=== PATIENT | female | born 1960 | race Caucasian/White ===

== ENCOUNTER → 2019-01-12 15:25 | Outpatient (CLI) | payer OTHER, SELFPAY ==
--- NOTE | 2019-01-12 15:34 | VDLE_ITS ---
Reason For Study: Pain LLE RIGHT LEFT CFV is compressible, spontaneous, phasic, GSV is normal. competent and demonstrates normal CFV is compressible, spontaneous, phasic, augmentation. competent, and demonstrates normal Procedure augmentation. Exam performed in department. FV is compressible, spontaneous, phasic, A preliminary report was called and/or faxed competent and demonstrates normal to Dr. King. augmentation. POP V is compressible, spontaneous, phasic, competent and demonstrates normal augmentation. T/P Trunk is compressible. PTV is compressible. LT PerV is compressible. Interpretation Summary Deep veins of the left lower extremity are patent and compressible segmentally. There is no evidence of left lower extremity deep vein thrombosis. Valvular competence appears intact within the proximal deep venous system on the left . The left great saphenous vein appears patent and compressible segmentally. Ordering Physician: Vick King Referring Physician: Marion Barraza Performed By: Saritha Healy, KATHE, RVT
== END ==
PROVIDERS: Family Provider Nurse Practitioner Primary Care; PCP Nurse Practitioner Primary Care; Referring Provider Specialist; Visit Provider Specialist
DX: M79.662 Pain in left lower leg (principal)
CPT/HCPCS: 93971

== ENCOUNTER → 2019-02-15 14:49 | Outpatient (CLI) | payer OTHER, SELFPAY ==
--- NOTE | 2019-02-15 14:51 | VDLE_ITS ---
Reason For Study: pain RIGHT LEFT CFV is compressible, spontaneous, phasic, GSV is normal. competent and demonstrates normal CFV is compressible, spontaneous, phasic, augmentation. competent, and demonstrates normal Procedure augmentation. Exam performed in department. FV is compressible, spontaneous, phasic, The exam was diagnostic. competent and demonstrates normal A preliminary report was called and/or faxed augmentation. to [facility]. POP V is compressible, spontaneous, phasic, competent and demonstrates normal augmentation. T/P Trunk is compressible. PTV is compressible. LT PerV is compressible. Interpretation Summary Deep veins of the left lower extremity are patent and compressible segmentally. There is no evidence of left lower extremity deep vein thrombosis. Valvular competence appears intact within the proximal deep venous system on the left . The left great saphenous vein appears patent and compressible segmentally. Performed By: Beka Bucio RVT
== END ==
PROVIDERS: Family Provider Nurse Practitioner Primary Care; PCP Nurse Practitioner Primary Care; Referring Provider Physician Assistant Surgical; Visit Provider Physician Assistant Surgical
DX: M79.605 Pain in left leg (principal)
CPT/HCPCS: 93971

== ENCOUNTER → 2020-05-09 06:20 | Outpatient (CLI) | payer OTHER, SELFPAY ==
--- NOTE | 2020-05-09 06:38 | MRI_ITS ---
STUDY: MRI LEFT HIP REASON FOR EXAM: Female, 59 years old. Mechanical complications left hip prosthesis left hip pain x several months TECHNIQUE: Standardized fat and water weighted pulse sequences were obtained in all 3 orthogonal planes. COMPARISON: X-ray dated 01/28/2016. FINDINGS: Bilateral hip arthroplasties. No acute fracture line. No acute dislocation. No acute cortical distraction. Bone marrow edema surrounds the left acetabulum. Moderate volume left-sided joint effusion with complex appearing joint effusion (axial image 12 series 9 and coronal image 4 series 7). Left hip capsular thickening. Normal appearing right hip arthroplasty. Normal pubic symphysis. Normal sacroiliac joints. Mild lower lumbar spine arthrosis. Normal left intrauterine tendon. Normal left iliopsoas tendon. Normal left rectus femoris tendon. Moderate adductor muscle atrophy (axial image 1 series 3) with intact tendons. Mild gluteus medius/minimus tendinosis. Mild gluteus zafar muscle atrophy. Visualized intra-abdominal/pelvic contents within normal limits. Colonic diverticulosis. Mild paraspinal muscle atrophy. Normal neurovascular bundle. No solid, cystic or lipomatous soft tissue lesions. MRI/Lower Ext Joint Only (Routine) IMPRESSION: Left acetabular reactive bone marrow edema/contusion (concern for potential hardware loosening) Complex left hip joint effusion with capsular distention/thickening (suspected synovitis or hemarthrosis; consider sampling) Mild gluteus medius/minimus and hamstring tendinosis Moderate adductor muscle atrophy Uncomplicated right hip arthroplasty Electronically Signed: Braydon Oswald DO at 12:09 EST Tel , Service support ,
== END ==
PROVIDERS: PCP Nurse Practitioner Primary Care; Referring Provider Specialist; Visit Provider Specialist
DX: T84.091A Other mechanical complication of internal left hip prosthesis, initial encounter (principal)
CPT/HCPCS: 73721

== ENCOUNTER → 2020-05-14 09:49 | Outpatient (CLI) | payer OTHER, SELFPAY ==
[2016-01-28 10:45] VITALS: BMI 40.5
--- NOTE | 2020-05-14 09:00 | RAD_ITS ---
PROCEDURE: FLUOROSCOPY-GUIDED GUIDED ASPIRATION -- LEFT HIP REASON FOR EXAM: Female, 59 years old. Left hip pain FLUOROSCOPY TIME (if supplied): (0:11) seconds RADIATION DOSAGE (If Supplied By Facility): CTDIvol = ( ) mGy, DLP = ( ) mGycm STERILE BARRIER TECHNIQUE: The following sterile barrier precautions were used during the procedure: hand hygiene; use of 2% chlorhexidine aseptic; use of a cap, mask, sterile gown, sterile gloves, sterile full body drape, and a large sterile sheet. PROCEDURE/TECHNIQUE: The risks, benefits, and alternatives to the procedure were explained to patient, and the patient agreed to the procedure and signed a consent form for the procedure. A timeout was performed to confirm the patient''s identity, the type of procedure, to be performed and the site of entry. Number of images obtained: 7 TECHNIQUE: Under fluoroscopic guidance using sterile technique and after infiltration of the skin and subcutaneous soft tissues with 10 mL of lidocaine 1% a 18-gauge needle is introduced in the left hip joint. 10 mL of milky fluid were removed and sent to lab for evaluation. FINDINGS: 10 mL of milky fluid were removed and sent to lab for evaluation. RAD/Inj/Asp Brenodn Jt Should/Hip/Knee IMPRESSION: Successful left hip aspiration under fluoroscopic guidance. Electronically Signed: Celio Ross, at 10:24 EST Tel , Service support ,
[2020-05-14 11:47] LABS: Body Fluid Polynuclear WBC % 6.3 %
[2020-05-14 14:50] LABS: Appearance/Body Fluid TURBID; Auto B Fluid Analyzer BKGD Ct COUNTS W/IN LIMITS (W/IN LIMITS); Color/Body Fluid COLORLESS
[2020-05-14 14:51] LABS: Body Fluid QC Type(s) BF1Q
[2020-05-14 15:25] LABS: Source- Body Fluid OTHER
[2020-05-15 09:40] LABS: Red Cell Count/Body Fluid < 0 /mm3
[2020-05-15 11:23] LABS: Pathologist Comment/Body Fluid Reviewed
== END ==
PROVIDERS: PCP Nurse Practitioner Primary Care; Referring Provider Specialist; Visit Provider Specialist
DX: T84.091A Other mechanical complication of internal left hip prosthesis, initial encounter (principal); M25.552 Pain in left hip; Z96.642 Presence of left artificial hip joint
CPT/HCPCS: 20610; 77002; 87015; 87070; 87075; 87101; 87116; 87205; 87206; 89050